=== PATIENT | female | born 1930 | race Caucasian/White ===

== ENCOUNTER 2016-05-03 02:15 | Emergency (ER) | payer BC ==
[~2016-05-03] VITALS: Ht 154.9 cm; Wt 44.0 kg
[~2016-05-03 02:15] MED LIST: ANSHCCR RE; ASPI1CHW26 PO; ATEN25TA PO; CHOL20005 PO; CYAN10005 PO; DOXY100C76 PO; NIAC500T8 PO; POLYSOL4 OP; PREMARIN VAGINAL PV
[2016-05-03 02:30] VITALS: Ht 154.9 cm; Wt 44.0 kg
--- NOTE | 2016-05-03 02:41 | EMERGENCY ROOM VISIT NOTE ---
History Report prepared by Deanne: Vladimir Montalvo Under the Supervision of: Dr. Mckenzie Reddy D.O. 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 The patient had a recent varicose vein biopsy on her left ankle in February. 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 The wound then began to "spurt" blood. The patient then passed out due to amount of blood that she saw. The staff at [facility] said that she went unresponsive. She does not remember this occurring. The patient's wound is not bleeding currently. She denies any abdominal pain. She takes baby aspirin three times a week. She has a past medical history of vaginal prolapse and hypertension. 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 A total of 10 systems reviewed and were otherwise negative. Past Medical & Surgical Medical Problems: (1) History of - hysterectomy (2) HYPERLIPIDEMIA NEC/NOS (3) HYPERTENSION NOS (4) OSTEOPOROSIS NOS Family History Cancer Social History Smoking Status: Former Smoker Alcohol Use: none Drug Use: none Marital Status: Housing Status: lives alone, lives with family Occupation Status: retired Current/Historical Medications Scheduled Atenolol (Tenormin), 37.5 MG PO QAM Allergies Coded Allergies: Codeine (Unverified Allergy, Mild, SLEEPY, 12/06/14) Latex (Verified Allergy, Unknown, pruritis, 12/06/14) Sulfa Antibiotics (Verified Allergy, Unknown, "VIOLENT RXN", 12/06/14) SEVERE N/V/D Physical Exam Vital Signs Date Time Temp Pulse Resp B/P Pulse Ox O2 Delivery O2 Flow Rate FiO2 05/03/16 06:08 36.5 90 20 142/69 97 05/03/16 05:47 90 20 142/69 97 Room Air 05/03/16 04:12 77 16 110/55 99 Room Air 05/03/16 02:30 36.5 66 15 147/75 100 Room Air Physical Exam HEENT: Head - normocephalic and atraumatic Pupils are equal, round, and reactive to light. Extraocular eye muscles are intact, and sclera are anicteric. Nose - moist nasal mucosa without discharge. Mouth - moist buccal mucosa. Oropharynx is nonerythematous and there is no tonsillar exudate or edema noted. Neck: Supple; no JVD, nuchal rigidity, cervical lymphadenopathy, or auscultated bruits. Heart: Regular rate and rhythm. There is a normal S1 and S2 with no murmurs, clicks, or gallops appreciated. Lungs: Clear to auscultation bilaterally with no wheezes, rales, or rhonchi. Abdomen: Soft, completely nontender, nondistended, with good bowel sounds. There are no palpable pulsatile masses or hepatosplenomegaly. There is no guarding, rigidity, or rebound noted. Extremities: No evidence of cyanosis, clubbing, or edema. There are easily palpable peripheral pulses. Left lateral ankle, small area of excoriation that has been clotted off overlying a varicose vein. Skin: warm and dry with good turgor and no rashes. Medical Decision & Procedures Laboratory Results 05/03/16 02:51 Test 05/03/16 02:51 Red Blood Count 3.31 M/uL (4.2-5.4) Mean Corpuscular Volume 100.3 fL (80-100) Mean Corpuscular Hemoglobin 32.6 pg (25-34) Mean Corpuscular Hemoglobin Concent 32.5 g/dl (32-36) RDW Standard Deviation 47.0 fL (36.4-46.3) RDW Coefficient of Variation 12.7 % (11.5-14.5) Mean Platelet Volume 10.7 fL (7.4-10.4) Laboratory results per my review. Procedure Lidocaine/ Epinephrine Laceration Repair Location: Left lateral foot, inferior to the lateral malleolus Total length: 0.5 mm Complexity: simple Verbal consent was obtained. At this time, the risks of the procedure are less than the risks of NOT performing the procedure. A time out was taken and the correct patient and site identified. The skin was prepped with betadine. The target area was anesthetized with 2 ml of 1% lidocaine with epinephrine. Copious irrigation was performed using saline. The skin was re-prepped with betadine and a sterile field set. The wound was explored for foreign bodies and none found. Examination revealed no injury to deep structures such as tendons, bone, or significant blood vessels. Debridement was not performed. The wound edges were approximated using 2, 4-0 simple interrupted nylon sutures. Hemostasis and excellent approximation was achieved. Antibacterial ointment and a sterile dressing applied. Detailed wound care instructions and signs and symptoms of infection reviewed with the patient. No complications and the patient tolerated the procedure well. ED Course 0219: Past medical records reviewed. The patient was evaluated in room A11. A complete history and physical exam was performed. Laboratory studies were drawn as above. 0325: The patient is resting at this time. The bleeding has stopped. 0424: Unfortunately, the patient ambulated to the bathroom and the bleeding started again. I reviewed the laboratory results with the patient. 0430: A laceration repair was done at this time. Please see the procedure note for more information. 0530: Upon reevaluation, the patient is resting. I discussed findings and results with her. She verbalized agreement of the treatment plan. She was discharged home. Medical Decision The patient is a 85 year old female who presents to the ED with ankle bleeding. Differential diagnosis includes vasovagal syncope, anemia, bleeding varicosity, and acute blood loss. Laboratory results showed: Hemoglobin 10.8 which is down from 13 in the fall, normal platelet count, normal WBC count. The patient picked a scab off of a varicose vein. She had excessive bleeding at her home. The patient does have evidence of anemia at this time. We had applied a pressure dressing to the wound and the bleeding had stopped temporarily but started again so 2 interrupted sutures were placed control bleeding. Another pressure dressing was applied and the patient will be discharged home. She was directed to have the sutures removed in 10 days. 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 I confirm that the note above accurately reflects all work, treatment, procedures, and medical decision making performed by me. Departure Information Dispostion Home / Self-Care Referrals Siddhartha Torres M.D. Forms HOME CARE DOCUMENTATION FORM, IMPORTANT VISIT INFORMATION Patient Instructions My [facility] Additional Instructions Rest with your left leg elevated. Follow up with Dr. Torres with regards to anemia Keep pressure dressing in place for 24 hours If bleeding starts again, hold pressure Problem Qualifiers
[2016-05-03 03:35] LABS: HEMATOCRIT 33.2 % (37-47); MEAN CELL VOLUME 100.3 fL (80-100); MEAN CORPUSCULAR HEMOGLOBIN 32.6 pg (25-34); MEAN CORPUSCULAR HGB CONC 32.5 g/dl (32-36); MEAN PLATELET VOLUME 10.7 fL (7.4-10.4); PLATELET COUNT 258 K/uL (130-400); RED BLOOD COUNT 3.31 M/uL (4.2-5.4)
[2016-05-03] MEDS ORDERED: LIDOCAINE/EPINEPHRINE 1% 20 ML VIAL ONE (04:24)
[2016-05-03 06:08] VITALS: BP 142/69; PULSE 90; TEMP 36.5; O2SAT 97
[2016-09-19] MEDS ORDERED: ASPEC81 PO (12:39)
[2016-09-19] MEDS ORDERED: ATEN25TA PO (12:39)
[2016-09-19] MEDS ORDERED: CPR500 PO (12:39)
== END 2016-05-03 06:08 | disposition home or self-care (01) ==
LOC: EDBD 02:15 → C.EDA 02:16
DX: I83.892 Varicose veins of left lower extremity with other complications (principal); D64.9 Anemia, unspecified; I10 Essential (primary) hypertension; N81.10 Cystocele, unspecified; E78.5 Hyperlipidemia, unspecified; M81.0 Age-related osteoporosis without current pathological fracture; Z90.710 Acquired absence of both cervix and uterus; Z87.891 Personal history of nicotine dependence

== ENCOUNTER → 2016-07-05 | Outpatient (CLI) | payer BC ==
[~2016-07-05] MED LIST changes: -ANSHCCR RE; +ASPEC81 PO; -ASPI1CHW26 PO; -CHOL20005 PO; +CPR500 PO; -CYAN10005 PO; -DOXY100C76 PO; +HYDRCRE28 TOP; -NIAC500T8 PO; -POLYSOL4 OP; -PREMARIN VAGINAL PV; +PRMVC XXX; +[UNRECOGNIZED DRUG - REMARK]
[2016-07-05 09:53] LABS: BASO % 0.5 %; BASO ABS # 0.03 K/uL (0-0.2); COMPLETE YES; EOS % 2.7 %; HEMATOCRIT 40.2 % (37-47); IG% 0.2 %; LYMPH % 34.3 %; LYMPH ABS # 1.89 K/uL (1.2-3.4); MEAN CELL VOLUME 98.3 fL (80-100); MEAN CORPUSCULAR HEMOGLOBIN 31.3 pg (25-34); MEAN CORPUSCULAR HGB CONC 31.8 g/dl (32-36); MEAN PLATELET VOLUME 11.2 fL (7.4-10.4); MONO % 11.3 %; PLATELET COUNT 266 K/uL (130-400); RED BLOOD COUNT 4.09 M/uL (4.2-5.4); WHITE BLOOD COUNT 5.51 K/uL (4.8-10.8)
[2016-07-05 10:26] LABS: ALT/SGPT 21 U/L (12-78); AST/SGOT 21 U/L (15-37); BLOOD UREA NITROGEN 22 mg/dl (7-18); BUN/CREATININE RATIO 34.8 (10-20); CALCIUM 8.8 mg/dl (8.5-10.1); CARBON DIOXIDE 31 mmol/L (21-32); CHLORIDE 107 mmol/L (98-107); CHOLESTEROL 189 mg/dl (0-200); CREATININE 0.64 mg/dl (0.60-1.20); GLUCOSE 89 mg/dl (70-99); POTASSIUM 3.7 mmol/L (3.5-5.1); SODIUM 144 mmol/L (136-145); TRIGLYCERIDES 82 mg/dl (0-150); URIC ACID 3.5 mg/dl (2.6-7.2); VERY LOW DENSITY LIPOPROT CALC 16 mg/dl
[2016-07-05 10:34] LABS: ALKALINE PHOSPHATASE 77 U/L (45-117); CHOLESTEROL/HDL RATIO 3.5; HDL CHOLESTEROL 54 mg/dl; LDL CHOLESTEROL CALCULATED 119 mg/dl
[2016-07-05 11:39] LABS: ESTIMATED AVERAGE GLUCOSE 108 mg/dl; HA1C FLAG Normal (Normal)
[2016-07-06 09:52] LABS: C-REACTIVE PROT HIGHSEN 22.9 MG/L
--- NOTE | 2016-07-12 06:56 | CODING QUERY MEDICAL NECESSITY ---
CQSUPPORTING DIAGNOSIS NEEDED A supporting diagnosis is required for the test/procedure performed on this patient in order for us to be reimbursed by the patient's insurance. Please provide a supporting diagnosis for the following test/procedure listed below next to the test name along with your signature. *If there is no additional diagnosis for this patient that would support the following test/procedure please document that below next to the test/procedure. Test(s)/Procedure(s) that require a supporting diagnosis: DOS 07/05/16 C-REACTIVE PROTEIN HIGH SENSITIVITY TESTING Provider Signature: Date: Thank you Mayelin Casanova Health Information Management Once completed, please kindly fax back to [phone] For questions please call [phone]
== END | disposition home or self-care (01) ==
LOC: C.LABFOXMH 09:27
PROVIDERS: ATTEND Family Medicine
DX: R73.09 Other abnormal glucose (principal); E55.9 Vitamin D deficiency, unspecified; D51.9 Vitamin B12 deficiency anemia, unspecified

== ENCOUNTER → 2016-07-07 | Outpatient (CLI) | payer BC ==
[2016-07-09 16:24] LABS: ALBUMIN 4.1 G/DL (3.8-4.8); GAMMA GLOBULIN 0.7 G/DL (0.8-1.7)
== END | disposition home or self-care (01) ==
LOC: C.LAB1850 16:07
PROVIDERS: ATTEND Internal Medicine Rheumatology
DX: M81.0 Age-related osteoporosis without current pathological fracture (principal); E55.9 Vitamin D deficiency, unspecified; E61.8 Deficiency of other specified nutrient elements

== ENCOUNTER 2016-09-17 19:25 | Inpatient (IN) | payer BC, OTHER ==
[~2016-09-17] VITALS: Ht 152.4 cm; Wt 45.1 kg
[~2016-09-17 19:25] MED LIST changes: -ASPEC81 PO; -CPR500 PO; -HYDRCRE28 TOP; -PRMVC XXX; -[UNRECOGNIZED DRUG - REMARK]
[2016-09-17] MEDS ORDERED: SODIUM CHLORIDE 0.9% 1000ML 1,000 ML IV STA (20:26)
--- NOTE | 2016-09-17 20:52 | DIAGNOSTIC IMAGING REPORT ---
CHEST ONE VIEW PORTABLE CLINICAL HISTORY: EVALUATE ALTERED MENTAL STATUS/WEAKNESS COMPARISON STUDY: 07/02/2014 FINDINGS: Lungs are clear. Moderate emphysematous change. Calcified granuloma inferior to the right hilum unchanged from the prior study. IMPRESSION: Emphysematous change. No acute process. Electronically signed by: Jonathan Freed M.D. 09/17/2016 8:51 PM Dictated Date/Time: 09/17/2016 8:50 PM
[2016-09-17] MEDS ORDERED: PRMVC XXX (20:59)
[2016-09-17] MEDS ORDERED: HYDRCRE28 TOP (20:59)
[2016-09-17] MEDS ORDERED: [UNRECOGNIZED DRUG - REMARK] (21:00)
[2016-09-17 21:06] LABS: HEMATOCRIT 38.7 % (37-47); MEAN CORPUSCULAR HEMOGLOBIN 30.8 pg (25-34); MEAN CORPUSCULAR HGB CONC 31.8 g/dl (32-36); MEAN PLATELET VOLUME 10.5 fL (7.4-10.4); PLATELET COUNT 249 K/uL (130-400); RED BLOOD COUNT 3.99 M/uL (4.2-5.4); WHITE BLOOD COUNT 9.93 K/uL (4.8-10.8)
[2016-09-17 21:15] LABS: PARTIAL THROMBOPLASTIN RATIO 1.1; PROTHROMBIN TIME (PATIENT) 10.7 SECONDS (9.0-12.0)
--- NOTE | 2016-09-17 21:19 | DIAGNOSTIC IMAGING REPORT ---
HEAD CT NONCONTRAST CT DOSE: 537.48 mGy.cm HISTORY: Mental status change EVALUATE ALTERED MENTAL STATUS/WEAKNESS TECHNIQUE: Multiaxial CT images of the head were performed without the use of intravenous contrast. Comparison: 12/09/2014 Findings: The paranasal sinuses and mastoid air cells are clear. Left-sided craniotomy flap in good position. This is unchanged. 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 No evidence for acute intracranial hemorrhage. Ventricular system is midline. Impression: Chronic and postoperative change. No acute process. Electronically signed by: Jonathan Freed M.D. 09/17/2016 9:18 PM Dictated Date/Time: 09/17/2016 9:17 PM
[2016-09-17 21:26] LABS: BASO % 0.1 %; BASO ABS # 0.01 K/uL (0-0.2); COMPLETE YES; IG% 0.2 %; LYMPH ABS # 0.99 K/uL (1.2-3.4); MONO % 5.8 %; NEUT % 83.9 %
[2016-09-17 21:29] LABS: BUN/CREATININE RATIO 33.1 (10-20); CREATININE 0.71 mg/dl (0.60-1.20); MAGNESIUM 2.3 mg/dl (1.8-2.4)
[2016-09-17 21:45] LABS: THYROID STIMULATING HORMONE 0.839 uIu/ml (0.300-4.500)
[2016-09-17 21:58] LABS: URINE APPEARANCE CLOUDY (CLEAR); URINE BILIRUBIN NEG (NEG); URINE COLOR YELLOW; URINE EPITHELIAL CELL AUTO >30 /lpf (0-5); URINE NITRITE NEG (NEG); URINE SPECIFIC GRAVITY 1.022 (1.000-1.030); UROBILINOGEN NEG (NEG); ZZUR CULT IF INDIC CLEAN CATCH YES
[2016-09-17 22:01] LABS: MANUAL MICROSCOPIC REQUIRED? NO; REVIEW REQ? YES
[2016-09-17] MEDS ORDERED: CEFTRIAXONE SOD INJ 1 GM ADDVIAL IV STA (22:44)
[2016-09-17] MEDS ORDERED: ALUMINUM/MAGNESIUM/SIMETH (MAALOX MAX) 30 ML UDC PO PRN (22:45)
[2016-09-17] MEDS ORDERED: NITROGLYCERIN 0.4 MG SL PER TAB CHARGE SL PRN (22:45)
[2016-09-17] MEDS ORDERED: ONDANSETRON INJ 2 MG/ML 2 ML VIAL IV PRN (22:45)
[2016-09-17] MEDS ORDERED: ACETAMINOPHEN 325 MG TAB PO PRN (22:45)
[2016-09-17] MEDS ORDERED: MAGNESIUM HYDROXIDE SUSP 30 ML UDC PO PRN (22:45)
[2016-09-17] MEDS ORDERED: ENOXAPARIN 30 MG/0.3 ML SYR SC SCH (22:45)
[2016-09-17] MEDS ORDERED: POLYETHYLENE (MIRALAX) 17 GM PACK PO PRN (22:45)
--- NOTE | 2016-09-17 23:35 | History and Physical ---
History & Physical Date & Time of Service: Sep 17, 2016 at 23:12 Chief Complaint: Possible Mild Stroke Primary Care Physician: Makayla Pendleton O.D. History of Present Illness Source: patient 86 y/o F Hx HTN, subdural hematoma 2014. Pt was exhibiting generalized weakness the entire day spending most of the day sleeping. She presented to the ER at the behest of her . She denies a fever, rigors, SOB, CP or dysuria. She does have a + UA, and her CK and troponin are elevated. Past Medical/Surgical History 1. Left chronic subdural hematoma. 2. Hypertension. 3. Hypercholesterolemia. 4. Osteoarthritis. Family History Cancer Social History Smoking Status: Former Smoker Drug Use: none Marital Status: Occupational Status: retired Multi-Drug Resistant Organisms History of MDRO: No Allergies Coded Allergies: Sulfa Antibiotics (Verified Allergy, Intermediate, "VIOLENT RXN", 09/17/16) SEVERE N/V/D Codeine (Verified Allergy, Mild, SLEEPY, 09/17/16) Latex (Verified Allergy, Mild, pruritis, 09/17/16) Home Medications Scheduled Atenolol (Tenormin), 37.5 MG PO QAM Estrogens, Conjugated (Premarin), 1 APPLN XXX HS Hydrocortisone (Rectal) (Proctozone-Hc), 1 APPLN TOP DAILY Miscellaneous Medications [Unknown Vitamins], Unknown Dose Review of Systems Constitutional: + weakness, + fatigue, No fever, No chills, No sweats Eyes: No worsening of vision, No eye pain ENT: No hearing loss, No nasal symptoms Respiratory: No cough, No wheezing Cardiovascular: No chest pain, No orthopnea, No PND Abdomen: No pain, No nausea, No vomiting Musculoskeletal: No joint pain, No muscle pain Genitourinary - Female: No dysuria, No urinary frequency, No urinary urgency Neurologic: + weakness, No memory loss, No paralysis Psychiatric: No depression symptoms Endocrine: No fatigue Hematologic / Lymphatic: No abnormal bleeding/bruising Integumentary: No rash Allergic / Immunologic: No environmental allergies Physical Exam Vital Signs Date Time Temp Pulse Resp B/P (MAP) Pulse Ox O2 Delivery O2 Flow Rate FiO2 09/17/16 22:46 82 16 174/95 98 Room Air 09/17/16 21:30 81 09/17/16 21:28 82 18 175/68 98 Room Air 09/17/16 19:30 37.1 78 16 164/74 98 Room Air General Appearance: WD/WN, no apparent distress, + pertinent finding (Petite elderly female , AAO x 3 , no distress) Head: normocephalic Eyes: normal inspection, PERRL, EOMI ENT: normal ENT inspection, pharynx normal Neck: supple, no JVD Respiratory/Chest: chest non-tender, lungs clear, normal breath sounds Cardiovascular: regular rate, rhythm, no edema, no gallop, no JVD, no murmur, normal peripheral pulses Abdomen/GI: normal bowel sounds, non tender, soft Back: normal inspection, no CVA tenderness, no muscle spasm, normal range of motion Extremities/Musculoskelatal: normal inspection, no calf tenderness, normal capillary refill, no pedal edema, normal range of motion 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, no motor/sensory deficits, alert, normal mood/affect, normal reflexes, oriented x 3 Skin: normal color, warm/dry, no rash Diagnostics Laboratory Results Results Past 24 Hours Test 09/17/16 20:55 09/17/16 21:15 Range/Units White Blood Count 9.93 4.8-10.8 K/uL Red Blood Count 3.99 4.2-5.4 M/uL Hemoglobin 12.3 12.0-16.0 g/dL Hematocrit 38.7 37-47 % Mean Corpuscular Volume 97.0 80-100 fL Mean Corpuscular Hemoglobin 30.8 25-34 pg Mean Corpuscular Hemoglobin Concent 31.8 32-36 g/dl Platelet Count 249 130-400 K/uL Mean Platelet Volume 10.5 7.4-10.4 fL Neutrophils (%) (Auto) 83.9 % Lymphocytes (%) (Auto) 10.0 % Monocytes (%) (Auto) 5.8 % Eosinophils (%) (Auto) 0.0 % Basophils (%) (Auto) 0.1 % Neutrophils # (Auto) 8.33 1.4-6.5 K/uL Lymphocytes # (Auto) 0.99 1.2-3.4 K/uL Monocytes # (Auto) 0.58 0.11-0.59 K/uL Eosinophils # (Auto) 0.00 0-0.5 K/uL Basophils # (Auto) 0.01 0-0.2 K/uL RDW Standard Deviation 50.0 36.4-46.3 fL RDW Coefficient of Variation 13.9 11.5-14.5 % Immature Granulocyte % (Auto) 0.2 % Immature Granulocyte # (Auto) 0.02 0.00-0.02 K/uL Prothrombin Time 10.7 9.0-12.0 SECONDS Prothromb Time International Ratio 1.0 0.9-1.1 Activated Partial Thromboplast Time 29.5 21.0-31.0 SECONDS Partial Thromboplastin Ratio 1.1 Sodium Level 140 136-145 mmol/L Potassium Level 4.0 3.5-5.1 mmol/L Chloride Level 104 98-107 mmol/L Carbon Dioxide Level 28 21-32 mmol/L Anion Gap 8.0 3-11 mmol/L Blood Urea Nitrogen 24 7-18 mg/dl Creatinine 0.71 0.60-1.20 mg/dl Est Creatinine Clear Calc Drug Dose 40.1 ml/min Estimated GFR () 90.0 Estimated GFR (Non- 77.7 BUN/Creatinine Ratio 33.1 10-20 Random Glucose 96 70-99 mg/dl Calcium Level 9.0 8.5-10.1 mg/dl Magnesium Level 2.3 1.8-2.4 mg/dl Total Bilirubin 0.8 0.2-1 mg/dl Direct Bilirubin 0.2 0-0.2 mg/dl Aspartate Amino Transf (AST/SGOT) 23 15-37 U/L Alanine Aminotransferase (ALT/SGPT) 22 12-78 U/L Alkaline Phosphatase 63 45-117 U/L Total Creatine Kinase 229 26-192 U/L Creatine Kinase MB 2.4 0.5-3.6 ng/ml Creatine Kinase MB Ratio 1.0 0-3.0 Troponin I 0.136 0-0.045 ng/ml Total Protein 7.1 6.4-8.2 gm/dl Albumin 3.4 3.4-5.0 gm/dl Lipase 79 73-393 U/L Thyroid Stimulating Hormone (TSH) 0.839 0.300-4.500 uIu/ml Urine Color YELLOW Urine Appearance CLOUDY CLEAR Urine pH 7.0 4.5-7.5 Urine Specific [place] 1.022 1.000-1.030 Urine Protein 1+ NEG Urine Glucose (UA) NEG NEG Urine Ketones TRACE NEG Urine Occult Blood 3+ NEG Urine Nitrite NEG NEG Urine Bilirubin NEG NEG Urine Urobilinogen NEG NEG Urine Leukocyte Esterase LARGE NEG Urine WBC (Auto) 10-30 0-5 /hpf Urine RBC (Auto) 0-4 0-4 /hpf Urine Hyaline Casts (Auto) 0 0-5 /lpf Urine Epithelial Cells (Auto) >30 0-5 /lpf Urine Bacteria (Auto) 1+ NEG Urine Renal Epithelial Cells 0-5 0-5 /lpf Urine Pathogenic Casts 0 /lpf Microbiology Results 09/17/16 Urine Culture, Received Pending EKG NSR Impression Assessment and Plan 86 y/o F Hx HTN, subdural hematoma 2014. Pt was exhibiting generalized weakness the entire day spending most of the day sleeping. She presented to the ER at the behest of her . She denies a fever, rigors, SOB, CP or dysuria. She does have a + UA, and her CK and troponin are elevated. 1) UTI - pt will be treated with Ceftriaxone pending culture results - this is the most likely cause of her weakness 2) Elevated CK, troponin - EKG shows a NSR without ischemic changes. She has not had CP or SOB. The pt weighs 44 Kg and has a CK of 240 after spending the day sleeping. This may constitute mild Rhabdomyolysis in the context of her likely baseline CK. We cannot however, definitively r/o cardiac etiology. We will obtain serial enzymes and an echo to evaluate for wall motion abnormalities. We have provide the pt with ASA. Anticoagulation will be considered if there is evidence of evolving UT however this may be best to avoid as she has a history of a subdural hematoma which required surgery in 2014. She is receiving IVF and we will trend her CK. 3) HTN - high BP on arrival - cont daily Atenolol - provided with dose of Labetalol at time of admission. Full code - SCDs Total time for this admit including review of labs, meds, EKG - discussion with pt and ER attending - 33 min Level of Care Telemetry Resuscitation Status FULL RESUSCITATION VTE Prophylaxis VTE Risk Assessment Done? Y/N: Yes Risk Level: Low Given or contraindicated: SCD's
--- NOTE | 2016-09-17 23:37 | EMERGENCY ROOM VISIT NOTE ---
History Report prepared by Deanne: Jay Donohue Under the Supervision of: Dr. Carlos Enrique Fuller D.O. First contact with patient: 20:18 Chief Complaint: STROKE SYMPTOMS Stated Complaint: POSSIBLE MILD STROKE Nursing Triage Summary: states pt went to bed last evening at 9pm and slept all day. Pt states pt has Hx of hematoma "left her with stroke like symptoms" like slurred speech and word searching. History of Present Illness The patient is a 86 year old female who presents to the Emergency Room with complaints resolved mild stroke like symptoms starting at 2200 last night. The patient is accompanied by her who states she fell asleep at 2200 last night on the sofa and did not go to her actual bed until 0400. Her reports that she was sleeping all day, lethargic, and was not able to eat or drink. He reports that he called his daughter that afternoon because she was still sleeping and the daughter called the nurses to report to their residence. The patient admits that she woke up once the nurses arrived at 1600 and she has been able to urinate and ambulate since. Her states that she had similar symptoms two years ago due to a hematoma surgery. He states that the patient slammed the car door on her head resulting in a cranial hematoma. He reports that the hematoma surgery was performed by Dr. Valera. The patient's states that she was experiencing mild stroke like symptoms following the surgery including dysphasia and vision and hearing loss. Source of History: patient, spouse/significant other () Onset: 2200 last night Position: other (global) Symptom Intensity: mild Quality: other (lethargy) Timing: resolved Associated Symptoms: + fatigue Review of Systems See HPI for pertinent positives & negatives. A total of 10 systems reviewed and were otherwise negative. Past Medical & Surgical Medical Problems: (1) History of - hysterectomy (2) HYPERLIPIDEMIA NEC/NOS (3) HYPERTENSION NOS (4) OSTEOPOROSIS NOS (5) UTI (urinary tract infection) (6) Weakness Family History Cancer Social History Smoking Status: Former Smoker Alcohol Use: none Drug Use: none Marital Status: Housing Status: lives alone, lives with family Occupation Status: retired Current/Historical Medications Scheduled Atenolol (Tenormin), 37.5 MG PO QAM Estrogens, Conjugated (Premarin), 1 APPLN XXX HS Hydrocortisone (Rectal) (Proctozone-Hc), 1 APPLN TOP DAILY Miscellaneous Medications [Unknown Vitamins], Unknown Dose Allergies Coded Allergies: Sulfa Antibiotics (Verified Allergy, Intermediate, "VIOLENT RXN", 09/17/16) SEVERE N/V/D Codeine (Verified Allergy, Mild, SLEEPY, 09/17/16) Latex (Verified Allergy, Mild, pruritis, 09/17/16) Physical Exam Vital Signs Date Time Temp Pulse Resp B/P (MAP) Pulse Ox O2 Delivery O2 Flow Rate FiO2 09/17/16 23:16 83 18 175/66 94 Room Air 09/17/16 22:46 82 16 174/95 98 Room Air 09/17/16 21:30 81 09/17/16 21:28 82 18 175/68 98 Room Air 09/17/16 19:30 37.1 78 16 164/74 98 Room Air Physical Exam VITAL SIGNS: were reviewed as above. GENERAL:Non-toxic in appearance. SKIN: Warm dry and pink. HEAD: Normocephalic and atraumatic. OROPHARYNX: Is clear and moist NECK: Supple without lymphadenopathy or meningismus. LUNGS: clear. HEART: Regular rate and rhythm. ABDOMEN: Soft and nontender. EXTREMITIES: Warm and well perfused. NEUROLOGICALLY: Awake alert and oriented without focal deficit. Cranial nerves 2 -12 are intact. There is no pronator drift. Cerebellar testing is within normal limits. There is no nystagmus. There is no facial droop. Speech is clear. Vision is grossly normal. MUSCULOSKELETAL: Good muscle tone. No evidence of trauma. Medical Decision & Procedures ER Provider Diagnostic Interpretation: Radiology results as stated below per my review and radiologist interpretation: HEAD CT NONCONTRAST CT DOSE: 537.48 mGy.cm HISTORY: Mental status change EVALUATE ALTERED MENTAL STATUS/WEAKNESS TECHNIQUE: Multiaxial CT images of the head were performed without the use of intravenous contrast. Comparison: 12/09/2014 Findings: The paranasal sinuses and mastoid air cells are clear. Left-sided craniotomy flap in good position. This is unchanged. 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 No evidence for acute intracranial hemorrhage. Ventricular system is midline. Impression: Chronic and postoperative change. No acute process. Electronically signed by: Jonathan Freed M.D. 09/17/2016 9:18 PM Dictated Date/Time: 09/17/2016 9:17 PM CHEST ONE VIEW PORTABLE CLINICAL HISTORY: EVALUATE ALTERED MENTAL STATUS/WEAKNESS COMPARISON STUDY: 07/02/2014 FINDINGS: Lungs are clear. Moderate emphysematous change. Calcified granuloma inferior to the right hilum unchanged from the prior study. IMPRESSION: Emphysematous change. No acute process. Electronically signed by: Jonathan Freed M.D. 09/17/2016 8:51 PM Dictated Date/Time: 09/17/2016 8:50 PM Laboratory Results 09/17/16 20:55 Red Blood Count 3.99, Mean Corpuscular Volume 97.0, Mean Corpuscular Hemoglobin 30.8, Mean Corpuscular Hemoglobin Concent 31.8, Mean Platelet Volume 10.5, Neutrophils (%) (Auto) 83.9, Lymphocytes (%) (Auto) 10.0, Monocytes (%) (Auto) 5.8, Eosinophils (%) (Auto) 0.0, Basophils (%) (Auto) 0.1, Neutrophils # (Auto) 8.33, Lymphocytes # (Auto) 0.99, Monocytes # (Auto) 0.58, Eosinophils # (Auto) 0.00, Basophils # (Auto) 0.01 09/17/16 20:55 Test 09/17/16 20:55 09/17/16 21:15 White Blood Count 9.93 K/uL (4.8-10.8) Red Blood Count 3.99 M/uL (4.2-5.4) Hemoglobin 12.3 g/dL (12.0-16.0) Hematocrit 38.7 % (37-47) Mean Corpuscular Volume 97.0 fL (80-100) Mean Corpuscular Hemoglobin 30.8 pg (25-34) Mean Corpuscular Hemoglobin Concent 31.8 g/dl (32-36) Platelet Count 249 K/uL (130-400) Mean Platelet Volume 10.5 fL (7.4-10.4) Neutrophils (%) (Auto) 83.9 % Lymphocytes (%) (Auto) 10.0 % Monocytes (%) (Auto) 5.8 % Eosinophils (%) (Auto) 0.0 % Basophils (%) (Auto) 0.1 % Neutrophils # (Auto) 8.33 K/uL (1.4-6.5) Lymphocytes # (Auto) 0.99 K/uL (1.2-3.4) Monocytes # (Auto) 0.58 K/uL (0.11-0.59) Eosinophils # (Auto) 0.00 K/uL (0-0.5) Basophils # (Auto) 0.01 K/uL (0-0.2) RDW Standard Deviation 50.0 fL (36.4-46.3) RDW Coefficient of Variation 13.9 % (11.5-14.5) Immature Granulocyte % (Auto) 0.2 % Immature Granulocyte # (Auto) 0.02 K/uL (0.00-0.02) Prothrombin Time 10.7 SECONDS (9.0-12.0) Prothromb Time International Ratio 1.0 (0.9-1.1) Activated Partial Thromboplast Time 29.5 SECONDS (21.0-31.0) Partial Thromboplastin Ratio 1.1 Anion Gap 8.0 mmol/L (3-11) Est Creatinine Clear Calc Drug Dose 40.1 ml/min Estimated GFR () 90.0 Estimated GFR (Non- 77.7 BUN/Creatinine Ratio 33.1 (10-20) Calcium Level 9.0 mg/dl (8.5-10.1) Magnesium Level 2.3 mg/dl (1.8-2.4) Total Bilirubin 0.8 mg/dl (0.2-1) Direct Bilirubin 0.2 mg/dl (0-0.2) Aspartate Amino Transf (AST/SGOT) 23 U/L (15-37) Alanine Aminotransferase (ALT/SGPT) 22 U/L (12-78) Alkaline Phosphatase 63 U/L (45-117) Total Creatine Kinase 229 U/L (26-192) Creatine Kinase MB 2.4 ng/ml (0.5-3.6) Creatine Kinase MB Ratio 1.0 (0-3.0) Troponin I 0.136 ng/ml (0-0.045) Total Protein 7.1 gm/dl (6.4-8.2) Albumin 3.4 gm/dl (3.4-5.0) Lipase 79 U/L (73-393) Thyroid Stimulating Hormone (TSH) 0.839 uIu/ml (0.300-4.500) Urine Color YELLOW Urine Appearance CLOUDY (CLEAR) Urine pH 7.0 (4.5-7.5) Urine Specific Barron 1.022 (1.000-1.030) Urine Protein 1+ (NEG) Urine Glucose (UA) NEG (NEG) Urine Ketones TRACE (NEG) Urine Occult Blood 3+ (NEG) Urine Nitrite NEG (NEG) Urine Bilirubin NEG (NEG) Urine Urobilinogen NEG (NEG) Urine Leukocyte Esterase LARGE (NEG) Urine WBC (Auto) 10-30 /hpf (0-5) Urine RBC (Auto) 0-4 /hpf (0-4) Urine Hyaline Casts (Auto) 0 /lpf (0-5) Urine Epithelial Cells (Auto) >30 /lpf (0-5) Urine Bacteria (Auto) 1+ (NEG) Urine Renal Epithelial Cells 0-5 /lpf (0-5) Urine Pathogenic Casts /lpf (0) Laboratory results as stated above per my review. Medications Administered Medications (Trade) Dose Ordered Sig/Lenny Route Start Time Stop Time Status Last Admin Dose Admin Sodium Chloride 1,000 ml @ 500 mls/hr Q2H STAT IV 09/17/16 20:26 09/17/16 22:25 DC 09/17/16 21:25 500 MLS/HR Ceftriaxone Sodium (Rocephin Inj) 1 gm NOW STAT IV 09/17/16 22:44 09/17/16 22:45 DC 09/17/16 22:50 1 GM ECG Indication: other (fatigue) Rate (beats per minute): 77 Rhythm: normal sinus Findings: no acute ischemic change, no ectopy ED Course 2019: Previous medical records were reviewed. The patient was evaluated in room C10. A complete history and physical examination was performed. 2025: Sodium Chloride 1000 ml @ 500 mls/hr IV. 2231: I reevaluated the patient and she is resting comfortably. I discussed the findings and results with her and advised that she be admitted. She agreed to admission and will be further evaluated. 2242. I discussed the patient's case with Dr. Monet, [facility] Hospitalist. He understands the patient's conditions and agrees to accept the patient. The patient will be further evaluated. Medical Decision Differential includes acute coronary syndrome, myocardial infarction, CVA, TIA, anemia, infection, pneumonia, UTI, pyelonephritis, poor nutrition, dehydration, electrolyte disturbance,hypoglycemia. Medication Reconciliation: I attest that I have personally reviewed the patient' s current medication list. Blood pressure Screening: Patient was found to have an elevated blood pressure and was referred to their primary doctor for recheck and further treatment. This is an 86-year-old female who presents to the ED with a chief complaint of sleeping heavily since 10 PM yesterday until 4:30 PM today. The nurse to check on the patient sent her here for evaluation. The patient denies any specific symptoms. Her exam was normal as was her neurologic exam. Test results reveal an elevated troponin and suggestion of UTI. She also appeared to be dehydrated with a BUN of 24. EKG did not show any ischemic changes. A CT scan of the brain was negative for acute disease as well as a chest x-ray. Because of the patient's abnormalities in her lab results, the patient will be seen for inpatient evaluation and treatment of UTI. She was given IV Rocephin here. Consults Time Called: 2242 Consulting Physician: Dr. Monet, [facility] Hospitalist Returned Call: 2242 I discussed the patient's case with Dr. Monet, [facility] Hospitalist. He understands the patient's conditions and agrees to accept the patient. The patient will be further evaluated. Impression Primary Impression: NSTEMI (non-ST elevated myocardial infarction) Additional Impression: UTI (urinary tract infection) Scribe Attestation The scribe's documentation has been prepared under my direction and personally reviewed by me in its entirety. I confirm that the note above accurately reflects all work, treatment, procedures, and medical decision making performed by me. Departure Information Referrals No Doctor, Assigned (PCP) Patient Instructions My [facility] Problem Qualifiers
[2016-09-17 23:45] VITALS: BP 172/81; PULSE 84; TEMP 36.8; O2SAT 96; Ht 152.4 cm; Wt 45.1 kg
[2016-09-17] MEDS ORDERED: D5NSS + 20MEQ KCL 1,000 ML IV SCH (23:45)
[2016-09-17] MEDS ORDERED: LABETALOL HCL 100 MG TAB PO ONE (23:45)
[2016-09-18] VITALS (7 sets, daily range): BP systolic 119–154; BP diastolic 64–80; PULSE 65–114; TEMP 36.4–37.1; O2SAT 93–97
[2016-09-18] MEDS: ASPIRIN 81 MG ECTAB PO SCH (09:31)
[2016-09-18 10:36] LABS: COMPLETE YES; EOS % 0.3 %; HEMATOCRIT 35.2 % (37-47); IG% 0.2 %; LYMPH % 17.6 %; LYMPH ABS # 1.03 K/uL (1.2-3.4); MEAN CELL VOLUME 97.8 fL (80-100); MEAN CORPUSCULAR HEMOGLOBIN 32.2 pg (25-34); MONO % 9.1 %; NEUT % 72.8 %; PLATELET COUNT 224 K/uL (130-400); WHITE BLOOD COUNT 5.84 K/uL (4.8-10.8)
--- NOTE | 2016-09-18 10:45 | ECHOCARDIOGRAM REPORT ---
*NOTICE TO RECEIVING REPUBLICAN AGENCY This information is strictly Confidential and protected under [place] law. [place] law prohibits you from making any further disclosure of this information unless further disclosure is expressly permitted by the written consent of the person to whom it pertains or is authorized by law. A general authorization for the release of medical or other information is not sufficient for this purpose. Hospital accepts no responsibility if the information is made available to any other person, INCLUDING THE PATIENT. Interpretation Summary * Name: KELLY CARDENAS Study Date: 09/18/2016 06:20 AM BP: 129/72 mmHg * Patient Location: C.2T\S\S240\S\2 HR: 112 * : 1930 (M/d/yyy) Gender: Female Height: 60 in * Age: 86 yrs Ethnicity: CA Weight: 96 lb * Ordering Physician: Julien Monet * Performed By: Erin Prado * * Reason For Study: ABNORMAL TROP * BSA: 1.4 m2 * -- Conclusions -- * 1. Normal LV size and wall thickness. * 2. Hyperdynamic LV systolic function. LVEF > 70%. No regional wall motion abnormalities. * 3. Normal RV size and function. * 4. Nodular thickening of aortic valve non-coronary cusp. No aortic stenosis. Mild aortic regurgitation. * 5. Normal estimated CVP. * 6. No prior studies for comparison. Procedure Details * A complete two-dimensional transthoracic echocardiogram was performed (2D, M-mode, Doppler and color flow Doppler). Left Ventricle * The left ventricle is grossly normal size. * There is normal left ventricular wall thickness. * Ejection Fraction = >70 %. * No regional wall motion abnormalities noted. Right Ventricle * The right ventricle is grossly normal size. * The right ventricular systolic function is normal as assessed by tricuspid annular plane systolic excursion (TAPSE) (normal >1.5 cm). Atria * The left atrial size is normal. * Borderline right atrial enlargement. * No ASD detected; PFO is not assessed. Mitral Valve * The mitral valve is grossly normal. * Mitral stenosis is absent. * Significant mitral regurgitation is absent. Tricuspid Valve * The tricuspid valve is not well visualized. * There is no tricuspid stenosis. * There is trace tricuspid regurgitation. Aortic Valve * There is discrete nodular thickening of the non- coronary cusp. * Aortic valve sclerosis mild, without significant aortic valvular stenosis. * The aortic valve is trileaflet. * No hemodynamically significant valvular aortic stenosis. * Mild aortic regurgitation. Pulmonic Valve * The pulmonary valve is inadequately visualized, but the Doppler data is adequate for interpretation. * There is no pulmonic valvular stenosis. * There is no pulmonic valvular regurgitation. Great Vessels * The aortic root and proximal ascending aorta are normal sized. Pericardium/Pleural * There is no pericardial effusion. Great Vessels * Normal inferior vena cava size and collapsability with sniff indicates a normal right atrial pressure of 3 mmHg MMode 2D Measurements and Calculations IVSd 0.97 cm IVSs 1.6 cm LVIDd 3.7 cm LVIDs 2.0 cm LVPWd 0.98 cm LVPWs 1.5 cm IVS/LVPW 0.99 FS 46.8 % EDV(Teich) 57.2 ml ESV(Teich) 12.0 ml EF(Teich) 78.9 % EDV(cubed) 49.7 ml ESV(cubed) 7.5 ml EF(cubed) 84.9 % % IVS thick 68.8 % % LVPW thick 56.0 % LV mass(C)d 108.1 grams LV mass(C)dI 79.1 grams/m\S\2 LV mass(C)s 107.1 grams LV mass(C)sI 78.4 grams/m\S\2 CO(Teich) 5.1 l/min CI(Teich) 3.7 l/min/m\S\2 SV(Teich) 45.2 ml SI(Teich) 33.1 ml/m\S\2 CO(cubed) 4.7 l/min CI(cubed) 3.5 l/min/m\S\2 SV(cubed) 42.2 ml SI(cubed) 30.9 ml/m\S\2 ACS 1.5 cm LA dimension 3.2 cm asc Aorta Diam 2.7 cm LVOT diam 1.6 cm LVOT area 2.0 cm\S\2 LVAd ap4 16.9 cm\S\2 LVLd ap4 6.5 cm EDV(MOD-sp4) 36.8 ml LVAs ap4 6.6 cm\S\2 LVLs ap4 5.5 cm ESV(MOD-sp4) 7.6 ml EF(MOD-sp4) 79.3 % LVAd ap2 15.4 cm\S\2 LVLd ap2 6.4 cm EDV(MOD-sp2) 31.7 ml LVAs ap2 6.1 cm\S\2 LVLs ap2 5.1 cm ESV(MOD-sp2) 6.8 ml EF(MOD-sp2) 78.5 % CO(MOD-sp4) 3.3 l/min CI(MOD-sp4) 2.4 l/min/m\S\2 SV(MOD-sp4) 29.2 ml SI(MOD-sp4) 21.4 ml/m\S\2 CO(MOD-sp2) 2.8 l/min CI(MOD-sp2) 2.0 l/min/m\S\2 SV(MOD-sp2) 24.9 ml SI(MOD-sp2) 18.2 ml/m\S\2 Doppler Measurements and Calculations MV E max shell 137.8 cm/sec MV dec time 0.16 sec Ao V2 max 156.1 cm/sec Ao max PG 9.7 mmHg Ao max PG (full) 2.6 mmHg HERMELINDA(V,A) 1.7 cm\S\2 HERMELINDA(V,D) 1.7 cm\S\2 AI max shell 413.3 cm/sec AI max PG 68.4 mmHg AI dec slope 444.4 cm/sec\S\2 AI P1/2t 272.4 msec LV V1 max PG 7.2 mmHg LV V1 max 133.9 cm/sec PA V2 max 95.6 cm/sec PA max PG 3.7 mmHg
--- NOTE | 2016-09-18 11:22 | PROGRESS NOTE ---
DATE: 09/18/2016 HISTORY OF PRESENT ILLNESS: Mrs. Theodore is a very pleasant 86-year-old white female, who was brought in to the Emergency Room by her family yesterday. She was not her usual self, slept almost the entire day, and states that she was tired. Apparently, she fell asleep at approximately 2200 on the evening of 09/16/2016, woke up at 4:00 a.m. and went up to her bed. She slept in the following day until approximately 3:00 in the afternoon. She was very lethargic, and did not have any appetite. 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 At the present time, the patient feels quite well. Thus far, her workup has revealed an abnormal urine analysis showing 3+ blood, trace ketones, large amount of leukocyte esterase, large amount of urine WBCs, and 1+ urine bacteria. Urine culture is pending. Additionally, her blood count was normal on admission, and electrolytes are within normal limits. She does, however, have a positive troponin I level. She specifically denies any chest pain, heaviness, tightness, pressure, or discomfort at any time. She denies any shortness of breath, unusual dyspnea on exertion, orthopnea or PND. She denies palpitations, syncope, or near syncope. She feels like she is back to her usual self. She has had a persistent sinus tachycardia today, and overnight she had an episode of what appears to be SVT at a rate of approximately 130 beats per minute. She does not have any history of cardiac dysrhythmias. PHYSICAL EXAMINATION: VITAL SIGNS: Temperature is 37 degrees Celsius, pulse is 112 beats per minute and regular, respiratory rate is 14 and unlabored. Blood pressure is 119/64. SpO2 is 97% on room air. GENERAL: The patient is lying flat in bed comfortably. She is in no acute distress. HEENT: Head is atraumatic, normocephalic. EOMs intact. Sclerae are anicteric. Face is symmetric. No perioral cyanosis. Mucous membranes are moist. NECK: Without thyromegaly, adenopathy or JVD. Carotid upstrokes are +2 bilaterally without bruits. CHEST AND LUNGS: With mildly diminished breath sounds, otherwise clear. No wheezes, rales or rhonchi. CARDIOVASCULAR: S1, and S2 are regular, tachycardic without obvious murmur, gallop, or rub. PMI is nondisplaced. No lifts, heaves, or thrills. No abdominal, aortic or renal bruits. ABDOMEN: Bowel sounds present. No masses, organomegaly, or tenderness. EXTREMITIES: Without clubbing, cyanosis, or edema. Intact posterior tibial and radial pulses bilaterally. NEUROLOGIC: The patient is awake, alert and oriented. Pleasant and cooperative. Answers questions appropriately. Speech is clear. Normal movement in all [address] scan on admission showed chronic and postoperative change, no acute processes. Chest x-ray on admission shows moderate emphysematous changes, no acute processes otherwise. Telemetry is currently showing sinus tachycardia, and she also had a brief episode of supraventricular tachycardia overnight. LABORATORY DATA: White blood cell count is 9.93. Hemoglobin 12.3 g/dl, hematocrit 38.7%, platelet count is 249,000. She does have a slightly elevated absolute neutrophil count. Sodium was 140 mmol/L, potassium 4.0 mmol/L. BUN is 24 mg/dL, creatinine is 0.71 mg/dL. Random glucose 96 mg/dL, magnesium 2.3 mg/dL. Total CKs are 289, 314, and 229 units per liter. Only one CK-MB was drawn at 2.4, which is normal. Troponin I levels are 0.123, 0.166, and 0.136 ng/mL. TSH is normal at 0.839. ASSESSMENT: 1. Lethargy and hypersomnolence 09/17/2016 - likely UTI, ? sepsis. 2. Elevated troponin I level -- echo pending. 3. Persistent sinus tachycardia -- possibly secondary to acute illness. 4. Brief run of Supraventricular Tachycardia over night. 5. Chronic obstructive pulmonary disease. 6. Hypertension. 7. Dyslipidemia. PLAN: 1. Repeat CBC. 2. Echocardiogram has already been ordered. It is not read yet. 3. Increase Atenolol to 37.5 mg b.i.d. 4. Continue Aspirin 81 mg daily. 5. Repeat CBC. 6. Urine culture pending. 7. Continue IV Ceftriaxone. 8. Check Procalcitonin level. 9. Continue to follow closely. ATTENDING NOTE: I have seen and examined the patient and discussed the plan of care with MERARY Newton. Any additions or exceptions to the above are as noted here: Pt feeling so much better. No pain, no urinary symptoms, no more fatigue. Trop mildly elevated but stable x 3. ECHO hyperdynamic function, no WMA.Urine culture with mixed organisms. Nonetheless, markedly improved after starting on antibiotics and receiving IVFs. VSS, tele reviewed NAD, AAOx3 RRR no mgr CTAB no wcr Abd +BS soft NT ND Ext no edema Sepsis, UTI, demand ischemia. -continue Rocephin and then will transition to po Cipro on discharge for 7 day course -watch BP and HR after increasing atenolol -continue other usual home meds -expect dc to home tomorrow Jojo Jimenez M.D. MTDD
[2016-09-18] MEDS ORDERED: CEFTRIAXONE SOD INJ 1 GM in DEXTROSE 5% ADD-VANTAGE 50ML 50 ML IV SCH (22:00)
[2016-09-19 03:54] VITALS: BP 152/80; PULSE 64; TEMP 36.6; O2SAT 95
[2016-09-19 07:47] VITALS: BP 176/79; PULSE 67; TEMP 36.8; O2SAT 95
[2016-09-19] MEDS: ASPIRIN 81 MG ECTAB PO SCH (08:23)
[2016-09-19 10:14] VITALS: BP 155/78
[2016-09-19 11:42] VITALS: BP 178/86; PULSE 68; O2SAT 98
[2016-09-19 12:00] VITALS: BP 175/83; PULSE 67; TEMP 36.9; O2SAT 94
[2016-09-19] MEDS ORDERED: ASPEC81 PO (12:39)
[2016-09-19] MEDS ORDERED: ATEN25TA PO (12:39)
[2016-09-19] MEDS ORDERED: CPR500 PO (12:39)
--- NOTE | 2016-09-19 12:45 | Discharge Instructions ---
Discharge Instructions Date of Service Sep 19, 2016. Admission Reason for Admission: Uti (Urinary Tract Infection), Weakness,Elevated troponin Discharge Discharge Diagnosis / Problem: UTI, weakness, demand ischemia Discharge Goals Goal(s): Improve disease control, Diagnostic testing, Therapeutic intervention Activity Recommendations Activity Limitations: resume your previous activity Lifting Limitations: none Exercise/Sports Limitations: none Shower/Bathe: no limitations . Instructions / Follow-Up Instructions / Follow-Up You were admitted with weakness and found to have a urinary tract infection. You had significant improvement with treatment with antibiotics. Unfortunately, a specific bacteria did not grow out of your urine culture, but you should finish out the course of antibiotics as prescribed. Because of your bladder prolapse, it is recommended that you follow up with your PCP and inquire about seeing a Residential Care Facility Manager or Urologist to see if anything further can be done for you. The prolapse and your urinary incontinence (and your resistance to drinking fluids to avoid incontinence) put you at risk for future urinary tract infections. Your blood pressure and heart rate were high while you were admitted. Your atenolol was increased to 25mg twice a day. You had a mild elevation in your heart marker on your blood work called "troponin." This was likely due to the stress of being sick. You DID NOT have a heart attack. The ultrasound of your heart did not show any evidence of damage. It is suggested though that you perhaps have a stress test of the heart as an outpatient. You can discuss this with your PCP. You should remain on a daily aspirin. Current Hospital Diet Patient's current hospital diet: AHA Diet (Heart Healthy) Discharge Diet Recommended Diet: AHA Diet (Heart Healthy) Procedures Procedures Performed: Echocardiogram Head CT Chest xray Pending Studies Studies pending at discharge: no Laboratory Results Hemoglobin A1c Test 07/05/16 06:50 Range/Units Estimated Average Glucose 108 mg/dl Hemoglobin A1c 5.4 4.5-5.6 % Lipid Panel Test 07/05/16 06:50 Range/Units Triglycerides Level 82 0-150 mg/dl Cholesterol Level 189 0-200 mg/dl HDL Cholesterol 54 mg/dl Cholesterol/HDL Ratio 3.5 LDL Cholesterol, Calculated 119 mg/dl Medical Emergencies . Who to Call and When: Medical Emergencies: If at any time you feel your situation is an emergency, please call 911 immediately. . Non-Emergent Contact Non-Emergency issues call your: Primary Care Provider Call Non-Emergent contact if: you have a fever, you have any medication questions . . "Provider Documentation" section prepared by Jojo Jimenez. . VTE Core Measure Inpt VTE Proph given/why not?: SCD's
[2016-09-19 13:13] VITALS: BP 175/83; PULSE 67; TEMP 36.9; O2SAT 94
--- NOTE | 2016-10-03 15:55 | Discharge Summary ---
Discharge Summary Date of Service Sep 19, 2016. Discharge Summary Admission Date: Sep 17, 2016 at 22:51 Discharge Date: Sep 19, 2016 Discharge Disposition: Home Principal Diagnosis: UTI, Weakness Problems/Secondary Diagnoses: Demand ischemia HTN Hyperlipidemia Procedures: Echocardiogram Chest xray Head CT Consultations: None Medication Reconciliation New Medications: Ciprofloxacin (Ciprofloxacin HCl) 500 Mg Tab 500 MG PO BID for 6 Days, #12 TAB Aspirin (Aspirin EC Low Dose) 81 Mg Ectab 81 MG PO QAM for 30 Days, #30 OTC Changed Medications: Atenolol (Tenormin) 25 Mg Tab 25 MG PO BID for 30 Days, #60 TAB (Changed from: 37.5 MG; QAM) Continued Medications: Estrogens, Conjugated (Premarin) 14 Appln/30 Gm Cr 1 APPLN XXX HS, #30 1 APPLICATOR VAGINALLY Hydrocortisone (Rectal) (Proctozone-Hc) 2.5 % Cre 1 APPLN TOP DAILY, #5 [Unknown Vitamins] () Unknown Strength Unknown Dose Referrals At Discharge Follow up Referrals: Physician Referral - Within 1 Week with Siddhartha Torres M.D. Discharge Exam Feels great, walked with PT and has no problems with balance or strength. Afebrile. Anxious for discharge. Does have c/o bladder prolapse and stress urinary incontinence. which prevents her from doing many activities she once enjoyed. It is stressful to her. Review of Systems: Constitutional: No fever Eyes: No problem reported ENT: No problem reported Respiratory: No problem reported Cardiovascular: No problem reported Abdomen: No problem reported Musculoskeletal: No problem reported Genitourinary - Female: + urinary frequency (chronic), + urinary incontinence Neurologic: No problem reported Psychiatric: No problem reported Endocrine: No problem reported Hematologic / Lymphatic: No problem reported Integumentary: No problem reported Physical Exam: General Appearance: no apparent distress, + thin Eyes: normal inspection, sclerae normal ENT: hearing grossly normal Neck: trachea midline Respiratory/Chest: lungs clear, normal breath sounds, no respiratory distress, no accessory muscle use Cardiovascular: regular rate, rhythm, no edema, no gallop, no murmur Abdomen / GI: normal bowel sounds, non tender, soft, no organomegaly, no pulsatile mass Extremities: normal inspection, no calf tenderness, no pedal edema Neurologic/Psychiatric: alert, normal mood/affect, oriented x 3 Skin: normal color, warm/dry, no rash Hospital Course Mrs. Theodore is a very pleasant 86-year-old white female, who was brought in to the Emergency Room by her family yesterday. She was not her usual self, slept almost the entire day, and states that she was tired. Apparently, she fell asleep at approximately 2200 on the evening of 09/16/2016, woke up at 4:00 a.m. and went up to her bed. She slept in the following day until approximately 3:00 in the afternoon. She was very lethargic, and did not have any appetite. 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 At the present time, the patient feels quite well. Thus far, her workup has revealed an abnormal urine analysis showing 3+ blood, trace ketones, large amount of leukocyte esterase, large amount of urine WBCs, and 1+ urine bacteria. Urine culture is pending. Additionally, her blood count was normal on admission, and electrolytes are within normal limits. She does, however, have a positive troponin I level. She specifically denies any chest pain, heaviness, tightness, pressure, or discomfort at any time. She denies any shortness of breath, unusual dyspnea on exertion, orthopnea or PND. She denies palpitations, syncope, or near syncope. She feels like she is back to her usual self. She had a persistent sinus tachycardia and overnight she had an episode of what appears to be SVT at a rate of approximately 130 beats per minute. She does not have any history of cardiac dysrhythmias. This resolved after being treated for her UTI. ASSESSMENT: 1. Lethargy and hypersomnolence 09/17/2016 - secondary to UTI, sepsis.--> now resolved after treatment for UTI and sepsis. Urine culture with mixed organisms but clinically improved with treatment. FInish out a course of Cipro upon discharge 2. Elevated troponin I level -demand ischemia--- echo witout WMA and with hyperdynamic EF 3. Persistent sinus tachycardia -- possibly secondary to acute illness.--> resolved 4. Brief run of Supraventricular Tachycardia over night.-resolved after increasing dose of atenolol. Dc to home on atenolol 25mg po bid 5. Chronic obstructive pulmonary disease.-stable 6. Hypertension.-stable 7. Dyslipidemia.-stable 8. Stress incontinence, h/o bladder prolapse--> with UTI and sepsis now--> recommend referral as outpatient to Urogyn for further assessment for treatment Dispo- to home Total Time Spent: Greater than 30 minutes This includes examination of the patient, discharge planning, medication reconciliation, and communication with other providers. Discharge Instructions Please refer to the electronic Patient Visit Report (Discharge Instructions) for additional information. Follow-Up PCP within 1 week Additional Copies To Siddhartha Torres M.D.
== END 2016-09-19 13:41 | disposition home or self-care (01) | DRG 872 ==
LOC: C.EDB 19:27 → C.2T 22:51 → ENRESERV 23:07
PROVIDERS: ADMIT Internal Medicine; ATTEND Family Medicine
DX: A41.9 Sepsis, unspecified organism (principal); N39.0 Urinary tract infection, site not specified; I24.8 Other forms of acute ischemic heart disease; I47.1 Supraventricular tachycardia; E78.5 Hyperlipidemia, unspecified; I10 Essential (primary) hypertension; N81.10 Cystocele, unspecified; M81.0 Age-related osteoporosis without current pathological fracture; Z87.891 Personal history of nicotine dependence; M19.90 Unspecified osteoarthritis, unspecified site; Z88.2 Allergy status to sulfonamides; Z88.0 Allergy status to penicillin; J44.9 Chronic obstructive pulmonary disease, unspecified; N39.3 Stress incontinence (female) (male)

== ENCOUNTER → 2016-11-10 | Outpatient (CLI) | payer BC ==
[~2016-11-10] MED LIST changes: +ASPEC81 PO; +CPR500 PO; +HYDRCRE28 TOP; +PRMVC XXX; +[UNRECOGNIZED DRUG - REMARK]
--- NOTE | 2016-11-10 15:19 | MAMMOGRAPHY REPORT ---
BILATERAL DIGITAL SCREENING MAMMOGRAM WITH CAD: 11/10/2016 TECHNIQUE: Current study was also evaluated with a Computer Aided Detection (CAD) system. Bilateral CC and MLO views were obtained. COMPARISON: Comparison is made to exams dated: 11/10/2015 mammogram, 11/07/2013 mammogram, 11/06/2012 m ammogram, 11/03/2011 mammogram, 10/21/2010 mammogram, and 10/20/2009 mammogram - [facility]ter. BREAST COMPOSITION: The tissue of both breasts is extremely dense, which lowers the sensitivity of m ammography. FINDINGS: No suspicious masses, calcifications, or areas of architectural distortion are noted in ei ther breast. There has been no significant interval change compared to prior exams. Scattered bilate ral benign-appearing calcifications are not significantly changed. IMPRESSION: ACR BI-RADS CATEGORY 2: BENIGN There is no mammographic evidence of malignancy. A 1 year screening mammogram is recommended. The pa tient will receive written notification of the results. Approximately 10% of breast cancers are not detected with mammography. A negative mammographic report should not delay biopsy if a clinically suggestive mass is present. Megahn Madden M.D. ah/:11/10/2016 11:56:34 Casino Gaming Worker: Светлана POLANCO(Shahram)(), [facility] letter sent: Normal 1/2 BI-RADS Code: ACR BI-RADS Category 2: Benign
== END | disposition home or self-care (01) ==
LOC: C.MAMM 11:05
PROVIDERS: ATTEND Family Medicine
DX: Z12.31 Encounter for screening mammogram for malignant neoplasm of breast (principal)

== ENCOUNTER → 2016-12-23 | Outpatient (CLI) | payer BC ==
[2016-12-23 12:04] LABS: BASO % 0.4 %; BASO ABS # 0.02 K/uL (0-0.2); COMPLETE YES; HEMATOCRIT 42.3 % (37-47); IG% 0.4 %; LYMPH % 30.6 %; LYMPH ABS # 1.66 K/uL (1.2-3.4); MEAN CORPUSCULAR HEMOGLOBIN 31.7 pg (25-34); MEAN CORPUSCULAR HGB CONC 31.7 g/dl (32-36); MEAN PLATELET VOLUME 10.8 fL (7.4-10.4); MONO % 6.6 %; PLATELET COUNT 314 K/uL (130-400); RED BLOOD COUNT 4.23 M/uL (4.2-5.4); WHITE BLOOD COUNT 5.42 K/uL (4.8-10.8)
[2016-12-23 12:37] LABS: ESTIMATED AVERAGE GLUCOSE 117 mg/dl; HA1C FLAG Normal (Normal)
[2016-12-23 12:38] LABS: ALT/SGPT 23 U/L (12-78); AST/SGOT 22 U/L (15-37); BLOOD UREA NITROGEN 27 mg/dl (7-18); BUN/CREATININE RATIO 41.7 (10-20); CALCIUM 9.7 mg/dl (8.5-10.1); CARBON DIOXIDE 29 mmol/L (21-32); CHLORIDE 105 mmol/L (98-107); CHOLESTEROL 214 mg/dl (0-200); CREATININE 0.64 mg/dl (0.60-1.20); GLUCOSE 85 mg/dl (70-99); POTASSIUM 4.7 mmol/L (3.5-5.1); SODIUM 139 mmol/L (136-145)
[2016-12-23 12:46] LABS: ALB/GLOB RATIO 0.9 (0.9-2); ALKALINE PHOSPHATASE 86 U/L (45-117); CHOLESTEROL/HDL RATIO 3.5; HDL CHOLESTEROL 61 mg/dl; LDL CHOLESTEROL CALCULATED 124 mg/dl; TOTAL IRON BINDING CAPACITY 441 mcg/dl (250-450); TRIGLYCERIDES 145 mg/dl (0-150); VERY LOW DENSITY LIPOPROT CALC 29 mg/dl
== END | disposition home or self-care (01) ==
LOC: C.LABFOXMH 11:33
PROVIDERS: ATTEND Family Medicine
DX: R73.09 Other abnormal glucose (principal); E55.9 Vitamin D deficiency, unspecified; D51.9 Vitamin B12 deficiency anemia, unspecified; E78.9 Disorder of lipoprotein metabolism, unspecified; R53.83 Other fatigue

== ENCOUNTER 2017-03-16 02:13 | Emergency (ER) | payer BC ==
[~2017-03-16] VITALS: Ht 152.4 cm; Wt 47.7 kg
[2017-03-16 02:15] VITALS: TEMP 36.8; Ht 152.4 cm; Wt 47.7 kg
[2017-03-16] MEDS ORDERED: GELATIN SPONGE 12-7MM ONE (02:23)
--- NOTE | 2017-03-16 02:30 | EMERGENCY ROOM VISIT NOTE ---
History Report prepared by Deanne: Jordin Alford Under the Supervision of: Dr. Mckenzie Reddy D.O. First contact with patient: 02:18 Chief Complaint: BLEEDING Stated Complaint: VERICOSE VEIN RUPTURE Nursing Triage Summary: pt BLS arrival from [facility] s/p left lower leg rupture of a Vericose vein. Pt states no injury. Bleeding controled at this time after placement of pressure wrap prior to ER arrival History of Present Illness The patient is an 86 year old female who presents to the Emergency Room with complaints of a resolved, bleeding varicose vein that occurred prior to arrival. The patient states she was standing at her sink getting a drink of water, and her vein started spiriting blood. She reports it was on the outside of her left ankle. The patient notes she takes 3 baby aspirin a week. She denies lightheadedness, abdominal pain, and bumping her vein. Source of History: patient Onset: NET TECHNICAL ARCHITECT Position: ankle (left) Quality: other (bleeding varicose vein) Timing: resolved Associated Symptoms: No abdominal pain Note: Denies: lightheadedness and bumping her vein Review of Systems See HPI for pertinent positives & negatives. A total of 10 systems reviewed and were otherwise negative. Past Medical & Surgical Medical Problems: (1) History of - hysterectomy (2) HYPERLIPIDEMIA NEC/NOS (3) HYPERTENSION NOS (4) OSTEOPOROSIS NOS (5) UTI (urinary tract infection) (6) Weakness Family History Cancer Social History Smoking Status: Former Smoker Alcohol Use: none Drug Use: none Marital Status: Housing Status: lives alone Occupation Status: retired Current/Historical Medications Scheduled Aspirin (Aspirin EC Low Dose), 81 MG PO QAM Atenolol (Tenormin), 25 MG PO BID Ciprofloxacin (Ciprofloxacin HCl), 500 MG PO BID Estrogens, Conjugated (Premarin), 1 APPLN XXX HS Hydrocortisone (Rectal) (Proctozone-Hc), 1 APPLN TOP DAILY Miscellaneous Medications [Unknown Vitamins], Unknown Dose Allergies Coded Allergies: Sulfa Antibiotics (Verified Allergy, Intermediate, "VIOLENT RXN", 09/17/16) SEVERE N/V/D Codeine (Verified Allergy, Mild, SLEEPY, 09/17/16) Latex (Verified Allergy, Mild, pruritis, 09/17/16) Physical Exam Vital Signs Date Time Temp Pulse Resp B/P (MAP) Pulse Ox O2 Delivery O2 Flow Rate FiO2 03/16/17 03:43 81 18 179/101 95 Room Air 03/16/17 02:15 36.8 89 18 190/101 95 Room Air Physical Exam Heart: Regular rate and rhythm. There is a normal S1 and S2 with no murmurs, clicks, or gallops appreciated. Lungs: Clear to auscultation bilaterally with no wheezes, rales, or rhonchi. Abdomen: Soft, completely nontender, nondistended, with good bowel sounds. There are no palpable pulsatile masses or hepatosplenomegaly. There is no guarding, rigidity, or rebound noted. Extremities: No evidence of cyanosis, clubbing, or edema. There are easily palpable peripheral pulses. Left lateral ankle has a varicose vein that had been bleeding. Skin: warm and dry with good turgor and no rashes. Medical Decision & Procedures Medications Administered Medications (Trade) Dose Ordered Sig/Lenny Route Start Time Stop Time Status Last Admin Dose Admin Gelatin (Surgifoam Sponge 12-7MM (SMALL)) 1 ea STK-MED ONCE .ROUTE 03/16/17 02:23 03/16/17 02:24 DC 03/16/17 02:23 1 EA Procedure 0223: Ordered Gel foam ED Course 0212: Past medical records reviewed. The patient was evaluated in room B09 by the medical student under my supervision. A complete history and physical exam was performed. 0226: The patient was evaluated in room B09 by me. A complete history and physical exam was performed. Gel-foam was used to seal the patient's varicose vein and prevent further bleeding. 0315: Upon reevaluation, the patient did not have bleeding after an ambulatory trial. She is resting comfortably. I discussed findings and results with her. She verbalized agreement of the treatment plan. The patient was discharged home. Medical Decision The patient is an 86 year old female who presents to the ED with a bleeding varicose vein. Differential diagnosis includes traumatic injury or spontaneous bleeding, varicose vein. When the patient arrived here in the emergency department, the bleeding had stopped. The area of concern was cleansed and a piece of Gelfoam was placed over the vein. This was wrapped with Verenice. The patient was able to ambulate without any further bleeding. I've asked to leave this dressing in place for the next 54 hours. At that time, she can soak it off. If the bleeding were to start again, she is to hold pressure for 20 minutes and elevate the foot. The bleeding is uncontrollable, she should return here to the ER. Medication Reconcilliation Current Medication List: was personally reviewed by me Blood Pressure Screening Patient's blood pressure: Elevated blood pressure Blood pressure disposition: Elevated BP felt to be situational Impression Primary Impression: Bleeding from varicose vein Scribe Attestation The scribe's documentation has been prepared under my direction and personally reviewed by me in its entirety. I confirm that the note above accurately reflects all work, treatment, procedures, and medical decision making performed by me. Departure Information Dispostion Home / Self-Care Referrals Simon Ojeda (PCP) Forms HOME CARE DOCUMENTATION FORM, IMPORTANT VISIT INFORMATION Patient Instructions My [facility] Additional Instructions Leave dressing in place for 24 hours then soak it off. If bleeding starts again, elevate the foot and hold pressure for 20 minutes. If the bleeding is uncontrollable, return to the ER.
[2017-03-16 03:43] VITALS: BP 179/101; PULSE 81; O2SAT 95
== END 2017-03-16 03:44 | disposition home or self-care (01) ==
LOC: EDBD 02:13 → C.EDB 02:14
DX: I83.92 Asymptomatic varicose veins of left lower extremity (principal); I10 Essential (primary) hypertension; Z79.82 Long term (current) use of aspirin; Z79.890 Hormone replacement therapy; Z87.891 Personal history of nicotine dependence

== ENCOUNTER → 2017-08-10 | Outpatient (CLI) | payer BC ==
[~2017-08-10] MED LIST changes: -ASPEC81 PO; +ASPI-320 PO
== END | disposition home or self-care (01) ==
LOC: C.LAB1850 15:32
PROVIDERS: ATTEND Internal Medicine Rheumatology
DX: M81.0 Age-related osteoporosis without current pathological fracture (principal); E55.9 Vitamin D deficiency, unspecified; E61.8 Deficiency of other specified nutrient elements

== ENCOUNTER → 2017-11-14 | Outpatient (CLI) | payer BC ==
--- NOTE | 2017-11-15 06:58 | MAMMOGRAPHY REPORT ---
BILATERAL DIGITAL SCREENING MAMMOGRAM TOMOSYNTHESIS WITH CAD: 11/14/2017 CLINICAL HISTORY: Routine screening. TECHNIQUE: The study was acquired using full field digital technology and interpreted from soft copy. Breast tomosynthesis in addition to standard 2D mammography was performed. Current study was also ev aluated with a Computer Aided Detection (CAD) system. COMPARISON: Comparison is made to exams dated: 11/10/2016 mammogram, 11/10/2015 mammogram, 11/07/2013 m ammogram, 11/06/2012 mammogram, 11/03/2011 mammogram, and 10/21/2010 mammogram - [facility] nter. BREAST COMPOSITION: The tissue of both breasts is extremely dense, which lowers the sensitivity of ma mmography. FINDINGS: A linear scar marker overlies the 12:00 right breast. There are stable rounded punctate mi crocalcifications bilaterally. Minimal vascular calcification as well. No suspicious mass, computer systems software architect ural distortion or cluster of microcalcifications is seen. IMPRESSION: ACR BI-RADS CATEGORY 1: NEGATIVE There is no mammographic evidence of malignancy. A 1 year screening mammogram is recommended.( 019) The patient will receive written notification of the results. Some breast cancers are not detected with mammography. A negative mammographic report should not naseem y biopsy if a clinically suggestive mass is present. Hilary Membreno M.D. ay/:11/14/2017 16:05:44 Furnace Feeder: RT Tj(Shahram)(M), [facility] letter sent: Normal 1/2 BI-RADS Code: ACR BI-RADS Category 1: Negative
== END | disposition home or self-care (01) ==
LOC: C.MAMM 11:24
PROVIDERS: ATTEND Family Medicine
DX: Z12.31 Encounter for screening mammogram for malignant neoplasm of breast (principal)